=== PATIENT | female | born 1990 | race Caucasian/White ===

== ENCOUNTER → 2018-02-22 | Outpatient (CLI) | payer OTHER | LOC: M WUC 14:38 | DX: R05 Cough (principal) | CPT/HCPCS: 71046 ==

== ENCOUNTER 2018-11-14 07:40 | Emergency (ER) | payer BC, OTHER ==
[~2018-11-14] VITALS: Ht 165.1 cm; Wt 86.4 kg
[2018-11-14] MEDS ORDERED: LABE10TAB (07:47)
[2018-11-14] MEDS ORDERED: FOLI1TAB11 PO (07:47)
[2018-11-14 08:27] LABS: BASO % 0.6 % (0.0-1.0); EOS # 0.1 10^3/uL (0.0-0.50); EOS % 1.5 % (0.0-3.0); HEMATOCRIT 38.8 % (36.0-47.0); HEMOGLOBIN 12.8 g/dl (12.0-15.5); LYMPH # 1.4 10^3/uL (1.5-6.5); LYMPH % 20.2 % (24.0-44.0); MEAN CORPUSCULAR HEMOGLOBIN 28.3 pg (27.0-33.0); MEAN CORPUSCULAR VOLUME 85.8 fl (80.0-96.0); MONO # 0.6 10^3/uL (0.0-0.8); MONO % 8.6 % (0.0-5.0); NEUTROPHILS # 4.6 10^3/uL (1.8-7.7); NEUTROPHILS % 68.8 % (36.0-66.0); PLATELET COUNT, AUTOMATED 203 10^3/uL (150-450); RED BLOOD COUNT 4.52 10^6/uL (4.00-5.40); WHITE BLOOD COUNT 6.7 10^3/uL (4.0-10.0)
[2018-11-14 08:54] LABS: ALBUMIN 3.8 GM/DL (3.2-5.2); ALT/SGPT 22 U/L (12-78); BILIRUBIN,DIRECT 0.1 MG/DL (0.0-0.2); BILIRUBIN,TOTAL 0.5 MG/DL (0.2-1.0); BLOOD UREA NITROGEN 9 MG/DL (7-18); CALCIUM LEVEL 8.9 MG/DL (8.5-10.1); CARBON DIOXIDE LEVEL 24 MEQ/L (21-32); CHLORIDE LEVEL 110 MEQ/L (98-107); CK-MB VALUE MASS < 1.0 NG/ML (<3.6); CPK CREATINE PHOSPHOKINASE 91 U/L (26-192); CREATININE FOR GFR 0.98 MG/DL (0.55-1.30); GLOMERULAR FILTRATION RATE > 60.0 (>60); GLUCOSE, FASTING 95 MG/DL (70-100); LIPASE 110 U/L (73-393); NT-PRO BNP 60 PG/ML (<125); POTASSIUM SERUM 4.2 MEQ/L (3.5-5.1); SODIUM LEVEL 141 MEQ/L (136-145); TOTAL PROTEIN 7.3 GM/DL (6.4-8.2); TROPONIN I < 0.02 NG/ML (< 0.10)
--- NOTE | 2018-11-14 09:20 | REP ---
CHEST SINGLE VIEW: There is no evidence of acute infiltrate. No pleural effusion is seen. The heart is normal in size. The mediastinal silhouette is unremarkable. The visualized osseous structures are intact. IMPRESSION: No acute pulmonary disease. Electronically Signed by Curtis Esteban MD 11/14/2018 03:11 P
[2018-11-14] MEDS ORDERED: SPIRONOLACTONE 12.5MG PER 1/2 TABLET PO STA (09:41)
[2018-11-14] MEDS ORDERED: CHLORTHALIDONE 12.5MG PER 1/2 TABLET PO ONE (09:45)
[2018-11-14] MEDS ORDERED: SPIR-10 PO (09:45)
[2018-11-14] MEDS ORDERED: CHLO125TA PO (09:45)
[2018-11-14 10:30] VITALS: BP 163/121
--- NOTE | 2018-11-14 19:30 | ECGEPIP ---
[facility] - ED Test Date: 2018-11-14 Pat Name: JANINA LIEBERMAN Department: Room: - Gender: Female Manager [facility]: carole : 1990 Requested By: Luci Guidry Order Number: [id number] Reading MD: Luci Guidry Measurements Intervals [place] Rate: 77 P: 43 TN: 131 QRS: 17 QRSD: 90 T: 20 QT: 371 QTc: 421 Interpretive Statements SINUS RHYTHM NO PRIOR Electronically Signed on 11-14-2018 19:30:04 EDT by Luci Guidry
[2018-12-04] MEDS ORDERED: CIPR250T3 (07:51)
[2018-12-04] MEDS ORDERED: POTA1TAB14 (07:51)
[2018-12-04] MEDS ORDERED: PEPC1TAB5 PO (10:50)
== END 2018-11-14 10:51 | disposition home or self-care (01) ==
LOC: M ED 07:40
DX: I10 Essential (primary) hypertension (principal); F41.9 Anxiety disorder, unspecified; Z88.8 Allergy status to other drugs, medicaments and biological substances

== ENCOUNTER → 2018-11-20 | Outpatient (CLI) | payer BC ==
[~2018-11-20] MED LIST: CHLO125TA PO; FOLI1TAB11 PO; LABE10TAB; SPIR-10 PO
--- NOTE | 2018-11-20 08:38 | REP ---
Clinical: Hypertension. Technique: Esteban scale and color Doppler evaluation of the kidneys and renal vasculature using curved array transducer. Findings: The kidneys are essentially normal in contour size and echogenicity and reniform shape without hydronephrosis, nephrolithiasis, cystic or renal mass lesion. Right kidney measures 10.8 x 4.8 x 4.4 centimeters. Left kidney measures 11.3 x 5.9 x 5.1 centimeters. Bladder is collapsed. Color Doppler evaluation of the renal vasculature demonstrates normal arterial wave patterns, velocities, renal aortic ratios, resistive indices and the acceleration time. No sonographic evidence for renal arterial stenosis noted. Renal vein is patent. The right main renal artery bifurcates at its midpoint to two renal arteries extending into the right renal hilum. Right Kidney: Peak arterial velocity: 171.9 cm/sec . Renal aortic ratio: 1.8 . Resistive indices: 0.53 - 0.55 . Acceleration times: 0.03 - 0.04 . Left kidney: Peak arterial velocity: 117.2 cm/sec . Renal aortic ratio: 1.3 . Resistive indices: 0.55 - 0.66 . Acceleration times: 0.03 - 0.04 . Impression: Normal examination. No evidence for renal arterial stenosis. Electronically Signed by Kamran Dawson MD 11/20/2018 08:22 A
== END ==
LOC: M RAD 07:20
PROVIDERS: ATTEND Emergency Medicine
DX: I10 Essential (primary) hypertension (principal)

== ENCOUNTER → 2018-11-27 | Outpatient (CLI) | payer BC ==
[~2018-11-27] MED LIST changes: +CIPR250T3; +PEPC1TAB5 PO; +POTA1TAB14
[2018-11-27 20:34] LABS: ALBUMIN 4.1 GM/DL (3.2-5.2); BLOOD UREA NITROGEN 17 MG/DL (7-18); CALCIUM LEVEL 9.5 MG/DL (8.5-10.1); CARBON DIOXIDE LEVEL 27 MEQ/L (21-32); CHLORIDE LEVEL 102 MEQ/L (98-107); CREATININE FOR GFR 0.99 MG/DL (0.55-1.30); GLOMERULAR FILTRATION RATE > 60.0 (>60); GLUCOSE, FASTING 94 MG/DL (70-100); MAGNESIUM LEVEL 1.9 MG/DL (1.8-2.4); PHOSPHORUS LEVEL 4.3 MG/DL (2.5-4.9); POTASSIUM SERUM 3.4 MEQ/L (3.5-5.1); SODIUM LEVEL 138 MEQ/L (136-145)
[2018-11-27 21:08] LABS: AMORPHOUS SEDIMENT LARGE (NEGATIVE); APPEARANCE, URINE TURBID (CLEAR); BACTERIA, URINE AUTO NEGATIVE (NEGATIVE); BILIRUBIN, URINE AUTO NEGATIVE (NEGATIVE); BLOOD, URINE BLOOD NEGATIVE (NEGATIVE); COLOR, URINE YELLOW (YELLOW); GLUCOSE, URINE (UA) AUTO NEGATIVE (NEGATIVE); KETONE, URINE AUTO TRACE mg/dL (NEGATIVE); LEUKOCYTE ESTERASE, URINE AUTO 2+ (NEGATIVE); NITRITE, URINE AUTO NEGATIVE (NEGATIVE); PROTEIN, URINE AUTO NEGATIVE (NEGATIVE); RBC, URINE AUTO 0 /HPF (0-3); SPECIFIC GRAVITY URINE AUTO 1.031 (1.002-1.035); SQUAMOUS EPITHELIAL CELL UR AU 0 /HPF (0-6); UROBILINOGEN, URINE AUTO 0.2 mg/dL (0.0-2.0); WBC, URINE AUTO 0 /HPF (0-3)
== END ==
LOC: M WUC 16:00
PROVIDERS: ATTEND Internal Medicine Cardiovascular Disease
DX: I10 Essential (primary) hypertension (principal)

== ENCOUNTER → 2018-12-24 | Outpatient (CLI) | payer BC ==
--- NOTE | 2018-12-24 10:54 | REP ---
Clinical: Radiculopathy. Technique: AP and lateral views of the cervical spine. Findings: Alignment is maintained. Vertebral bodies and disc spaces are relatively normal. Prevertebral soft tissues normal. Impression: Essentially normal appearance to the cervical spine. Electronically Signed by Kamran Dawson MD 12/24/2018 10:46 A
== END ==
LOC: M WUC 10:16
PROVIDERS: ATTEND Physician Assistant
DX: M54.12 Radiculopathy, cervical region (principal)

== ENCOUNTER → 2021-12-03 | Outpatient (CLI) | payer BC ==
[~2021-12-03] MED LIST changes: +LABE100T4; -LABE10TAB
== END ==
LOC: M WUC 09:40
PROVIDERS: ATTEND Student in an Organized Health Care Education/Training Program
DX: M25.512 Pain in left shoulder (principal)

== ENCOUNTER → 2024-08-06 | Outpatient (CLI) | payer SELFPAY ==
[~2024-08-06] MED LIST changes: -LABE100T4; +LABE100T6; +POTA-298; -POTA1TAB14
[2024-08-06 16:46] LABS: BASO % 0.4 % (0.0-1.0); EOS % 0.2 % (0.0-3.0); HEMOGLOBIN 12.6 g/dl (12.0-15.5); LYMPH # 0.7 10^3/uL (1.5-5.0); LYMPH % 12.2 % (24.0-44.0); MEAN CORPUSCULAR HEMOGLOBIN 28.4 pg (27.0-33.0); MEAN CORPUSCULAR HGB CONC 33.2 g/dl (32.0-36.5); MEAN CORPUSCULAR VOLUME 85.6 fl (80.0-96.0); MONO # 0.6 10^3/uL (0.0-0.8); MONO % 11.5 % (2.0-8.0); NEUTROPHILS # 4.1 10^3/uL (1.5-8.5); NEUTROPHILS % 75.5 % (36.0-66.0); PLATELET COUNT, AUTOMATED 167 10^3/uL (150-450); RED BLOOD COUNT 4.44 10^6/uL (4.00-5.40); WHITE BLOOD COUNT 5.4 10^3/uL (4.0-10.0)
[2024-08-06 17:10] LABS: LIPASE 25 U/L (12-53)
[2024-08-06 17:12] LABS: ALKALINE PHOSPHATASE 53 U/L (35-104); ALT/SGPT 10 U/L (7.0-40); AST/SGOT < 8 U/L (<34); BILIRUBIN,TOTAL 0.7 MG/DL (0.3-1.2); BLOOD UREA NITROGEN 6 MG/DL (9-23); CALCIUM LEVEL 9.1 MG/DL (8.5-10.1); CARBON DIOXIDE LEVEL 24 MMOL/L (20-31); CHLORIDE LEVEL 107 MMOL/L (98-107); CREATININE FOR GFR 0.85 MG/DL (0.55-1.30); GLOMERULAR FILTRATION RATE > 60.0 (>60); GLUCOSE, FASTING 98 MG/DL (60-100); SODIUM LEVEL 142 MMOL/L (136-145); TOTAL PROTEIN 7.1 G/DL (5.7-8.2)
== END ==
LOC: M WUC 10:04
PROVIDERS: ATTEND Physician Assistant
DX: R10.812 Left upper quadrant abdominal tenderness (principal)